=== PATIENT | male | born 1965 ===

== ENCOUNTER 2022-10-14 10:59 | Inpatient (IN) | payer OTHER ==
[~2022-10-14] VITALS: Ht 170.2 cm; Wt 87.1 kg
[~2022-10-14 10:59] MED LIST: ORPH100T PO; VOLTAREM 50 MG PO
--- NOTE | 2022-10-14 11:56 | NUR ---
SE RECIBE MASCULINO DE 57 ANOS ALERTA Y ORIENTADO X3 REFIERE TENER DOLOR PELVICO CONCENTRADO EN EL LADO MARIBELL.
--- NOTE | 2022-10-14 12:51 | NUR ---
PTE ALERTA Y ORIENTADA X3 ES EVALUADO POR EL DR. LOZANO EL CUAL ORDEN TRATAMIENTO MEDICO. SE ORIENTA SOBRE TRATAMIENTO ORDEDO, VEBRALZIA ENTENDER. SE REALIZA VENOPUNCION Y SE HEATHER MUESTRAS DE LABORATORIO NASEEM ORDEN MEDICA BAJO MEDIDAS ASEPTICAS Y SE ENVIAN A LABORATORIO. SE ADMINISTRA MEDICAMENTO NASEEM ORDNE MEDICA. SE DENISE EN OBSERVACION POR TRATAMIENTO.
[2022-10-18] MEDS ORDERED: AMOX-CLAV 875-1 EACH PO (18:50)
[2022-10-18] MEDS ORDERED: PEPCID AC20 MG PO (18:50)
== END 2022-10-18 20:02 | disposition home or self-care (01) | DRG 392 ==
LOC: ER 10:59 → MEDI 21:28
PROVIDERS: Emergency Medicine; ADMIT Specialist; ATTEND Specialist
PROC: BW21YZZ Computerized Tomography (CT Scan) of Abdomen and Pelvis using Other Contrast (ICD-10-PCS; principal; 2022-10-14)
DX: K57.32 Diverticulitis of large intestine without perforation or abscess without bleeding (principal); E86.0 Dehydration; K80.20 Calculus of gallbladder without cholecystitis without obstruction; Z20.822 Contact with and (suspected) exposure to COVID-19